=== PATIENT | female | born 1985 | race Caucasian/White ===

== ENCOUNTER 2022-01-27 17:37 | Inpatient (IN) | payer MEDICAID ==
[~2022-01-27] VITALS: Ht 170.2 cm; Wt 79.9 kg
--- NOTE | 2022-01-27 17:38 | NUR ---
MK, PT IS HOMELESS WAS FOUND IN VACANT HOME, DEHYDRATED, APPEARS TO BE ON DRUGS PT NOT WILLING TO PROVIDE NAME NOR BIRTHDAY, PRETENDING TO BE ASLEEP
--- NOTE | 2022-01-27 17:40 | NUR ---
THE PATIENT IS PLACED ON OXYGEN AT 5L/MIN VIA SIMPLE MASK AND OXYGEN SATURATION LEVEL IMPORVED TO 95%. WILL CONTINUE TO MONITOR THE PATIENT.
[2022-01-27] MEDS ORDERED: NALOXONE PREFILLED SYRINGE 2 MG/2 ML SYRINGE ONE (17:48)
[2022-01-27] MEDS ORDERED: NALOXONE HCL 0.4 MG/ML AMPUL IV ONE (18:00)
[2022-01-27] MEDS ORDERED: IV LR 1000 ML 1,000 ML IV ONE (18:00)
[2022-01-27] MEDS ORDERED: IV LR 1000 ML 1,000 ML BAG IV ONE (18:00)
[2022-01-27] MEDS ORDERED: DEXTROSE 50%-WATER 50 ML DISP.SYRIN ONE ×2 (18:11→19:09)
[2022-01-27] MEDS ORDERED: CEFTRIAXONE 1GM BAG (ER ONLY) 1 GM/50 ML PIGGYBACK IV ONE (19:00)
[2022-01-27] MEDS ORDERED: Thiamine 100 MG in IV D5W 50 ML IV SCH (19:00)
[2022-01-27] MEDS ORDERED: DEXTROSE 50%-WATER 50 ML DISP.SYRIN IVP ONE ×2 (19:00→19:30)
[2022-01-27] MEDS ORDERED: CEFTRIAXONE 1GM BAG (ER ONLY) 50 ML IV ONE (19:09)
[2022-01-27] MEDS ORDERED: Thiamine 100 MG/ML VIAL ONE (19:09)
--- NOTE | 2022-01-27 19:12 | NUR ---
RT pt leo. glenny to myesha per dr vaughn Addendum: 01/27/22 at 1929 by MADY BRISENO chico murrieta to [facility]
--- NOTE | 2022-01-27 19:20 | NUR ---
BLOOD SUGAR IS 68. DR BRENNER MADE AWARE.
[2022-01-27 19:27] LABS: ALCOHOL, BLOOD < 3 mg/dL (0-0)
[2022-01-27 19:34] LABS: BILIRUBIN,URINE NEGATIVE (NEGATIVE); COLOR,URINE YELLOW (YELLOW); LEUKOCYTE ESTERASE ,URINE SMALL (NEGATIVE); NITRITE, URINE NEGATIVE (NEGATIVE); PH,URINE 6.5 (5.0-8.0); PROTEIN,URINE 30 mg/dl (NEGATIVE); UGLUCOSE NEGATIVE (NEGATIVE); UROBILINOGEN,URINE 0.2 EU/dL (0.2)
[2022-01-27 19:44] LABS: ACETAMINOPHEN < 2 ug/ml (10-30)
[2022-01-27 19:45] LABS: BACTERIA,URINE 2+ /HPF (None Seen); RBC,URINE 0-2 /HPF (0-2); SQUAMOUS EPITHELIAL CELL,UR Few /HPF (None Seen); TRICHOMONAS,URINE Moderate /HPF (None Seen); WBC,URINE 51-80 /HPF (0-3)
--- NOTE | 2022-01-27 19:45 | NUR ---
CRITICAL: 3.6 LACTIC ACID, MADE AWARE
--- NOTE | 2022-01-27 19:46 | NUR ---
CRITICAL: WESLEY Law MD MADE AWARE
--- NOTE | 2022-01-27 20:02 | NUR ---
PROCALCITONIN 4.51 AWARE
--- NOTE | 2022-01-27 20:03 | NUR ---
BLOOD GLUCOSE 127
[2022-01-27 20:06] LABS: CALCIUM, SERUM 7.8 mg/dL (8.5-10.1); CARBON DIOXIDE 23 mmol/L (21-32); CHLORIDE 108 mmol/L (98-107); CREATININE 2.4 mg/dL (0.6-1.3); GLUCOSE 139 mg/dL (74-106); POTASSIUM 4.2 mmol/L (3.5-5.1); SODIUM SERUM 142 mmol/L (136-145); UREA NITROGEN, BLOOD 17 mg/dL (7-18)
[2022-01-27 20:16] LABS: ALANINE AMINOTRANSFERASE 79 U/L (12-78); ALBUMIN 2.9 g/dL (3.4-5.0); ALKALINE PHOSPHATASE 90 U/L (46-116); ASPARTATE AMINOTRANSFERASE 109 U/L (15-37); BILIRUBIN,DIRECT 0.1 mg/dL (0.0-0.2); BILIRUBIN,TOTAL 0.1 mg/dL (0.2-1.0); TOTAL PROTEIN, SERUM 6.1 g/dL (6.4-8.2)
[2022-01-27 20:34] LABS: BASOPHILS % (AUTO) 0.1 % (0.0-2.0); EOSINOPHILS % (AUTO) 0.1 % (0.0-6.0); HEMATOCRIT 39 % (33-45); HEMOGLOBIN 12.7 g/dL (11.5-14.8); LYMPHOCYTES # (AUTO) 1.5 K/uL (0.8-4.8); LYMPHOCYTES % (AUTO) 5.1 % (20.0-44.0); MEAN CORPUSCULAR HGB CONC 32 g/dl (31.0-36.0); MEAN CORPUSCULAR VOLUME 91 fL (82-100); MONOCYTES # (AUTO) 1.4 K/uL (0.1-1.30); NEUTROPHILS # (AUTO) 26.2 K/uL (1.8-8.9); NEUTROPHILS % (AUTO) 89.7 % (43.0-81.0); PLATELET COUNT (AUTO) 379 K/uL (150-450); RED BLOOD CELL COUNT(AUTO) 4.35 MIL/uL (4.0-5.2); WHITE BLOOD COUNT (AUTO) 29.2 K/uL (4.3-11.0)
--- NOTE | 2022-01-27 20:43 | NUR ---
COVID SWAB DONE AND SENT TO LAB
[2022-01-27] MEDS ORDERED: VANCOMYCIN HCL 1.25 GM in IV D5W 260 ML IV ONE (21:00)
[2022-01-27] MEDS ORDERED: NOREPINEPHRINE 8 MG in IV NS 0.9% 250 ML IV PRN (22:00)
[2022-01-27] MEDS ORDERED: IV NS 0.9% 1,000 ML IV PRN (22:00)
--- NOTE | 2022-01-27 22:11 | NUR ---
room 256
--- NOTE | 2022-01-27 22:28 | NUR ---
GAVE REPORT TO DEA PRINCE FOR JENN
[2022-01-27] MEDS ORDERED: PIPERACILLIN /TAZOBACTAM 3.375 G VIAL IV ONE (23:21)
[2022-01-27] MEDS: IV D5/ 0.9% NACL 1,000 ML IV PRN (23:24)
[2022-01-27] MEDS: PIPERACILLIN /TAZOBACTAM 3.375 G in IV D5W 50 ML IV SCH (23:24)
[2022-01-28] VITALS (24 sets, daily range): BP systolic 86–142; BP diastolic 52–82
[2022-01-28] MEDS ORDERED: PIPERACILLIN /TAZOBACTAM 3.375 G in IV D5W 50 ML IV SCH ×2
--- NOTE | 2022-01-28 01:00 | NUR ---
PUBLIC POLICY MANAGER. RECEIVED THE PT FROM ER [facility]IA [facility]. SEPSIS, HYPOTENSION. PT IS VERY LETHARGIC. DOES NOT FOLLOW COMMANDS. HOB ELEVATED. SLEEPING ALL THE TIME. OXYGEN 2L N/C. SAT 98%, NO ACUTE DISTRESS NOTED. DELICATESSEN DEPARTMENT MANAGER SHOWING NSR. WILL CONTINUE TO MONITOR
--- NOTE | 2022-01-28 01:12 | NUR ---
PT REFUSED ABG RN AWARE.
[2022-01-28 04:08] LABS: BASOPHILS % (AUTO) 0.2 % (0.0-2.0); HEMATOCRIT 38 % (33-45); HEMOGLOBIN 12.2 g/dL (11.5-14.8); LYMPHOCYTES # (AUTO) 3.4 K/uL (0.8-4.8); LYMPHOCYTES % (AUTO) 15.1 % (20.0-44.0); MEAN CORPUSCULAR HGB CONC 33 g/dl (31.0-36.0); MEAN CORPUSCULAR VOLUME 91 fL (82-100); MONOCYTES # (AUTO) 1.6 K/uL (0.1-1.30); MONOCYTES % (AUTO) 7.1 % (2.0-12.0); NEUTROPHILS # (AUTO) 17.6 K/uL (1.8-8.9); NEUTROPHILS % (AUTO) 77.6 % (43.0-81.0); PLATELET COUNT (AUTO) 334 K/uL (150-450); RED BLOOD CELL COUNT(AUTO) 4.13 MIL/uL (4.0-5.2); WHITE BLOOD COUNT (AUTO) 22.7 K/uL (4.3-11.0)
[2022-01-28] MEDS: PIPERACILLIN /TAZOBACTAM 3.375 G in IV D5W 50 ML IV SCH (06:00)
[2022-01-28] MEDS ORDERED: PIPERACILLIN /TAZOBACTAM 3.375 G VIAL IV ONE (06:27)
[2022-01-28 08:28] LABS: ALBUMIN 2.9 g/dL (3.4-5.0); BILIRUBIN,TOTAL 0.3 mg/dL (0.2-1.0); CALCIUM, SERUM 7.4 mg/dL (8.5-10.1); TOTAL PROTEIN, SERUM 5.9 g/dL (6.4-8.2)
[2022-01-28] MEDS ORDERED: Thiamine 100 MG in IV D5W 50 ML IV SCH (09:00)
--- NOTE | 2022-01-28 09:40 | NUR ---
ALL PREVIOUS MEDS BEFORE 0700 GIVEN DURING DOWNTIME BY TREE DRILLER.
--- NOTE | 2022-01-28 10:01 | NUR ---
TROPONIN LEVEL FROM 218 TO 773 OF 1000 01/28/22.
[2022-01-28] MEDS: IV D5/ 0.9% NACL 1,000 ML IV PRN ×2 (11:20→21:44)
--- NOTE | 2022-01-28 11:40 | NUR ---
SS consult requested for Homelessness. SW will follow up at a later time.
[2022-01-28] MEDS: ACETAMINOPHEN 325 MG TABLET PO PRN ×3 (13:14→22:25)
[2022-01-28] MEDS ORDERED: PIPERACILLIN /TAZOBACTAM 3.375 G in IV D5W 100 ML IV SCH (14:00)
--- NOTE | 2022-01-28 19:24 | NUR ---
RN CLOSING NOTES pt fully awake, off npo status. A/O X4, ON RA SATING AT 98%. IV ACCESS NOTED AT LEFT EJ. D5 NS RUNNING. ALL SAFETY MEASURES IN PLACE, FALL PRECAUTIONS IN PLACE, ENDORSED CARE OF PT TO CONTRACTS OFFICER RN.
--- NOTE | 2022-01-28 19:30 | NUR ---
RN OPENING NOTES PATIENT LAYING ON THE BED ASLEEP BUT AWAKES TO VOICE A&OX4. ALL VSS. SR, VOIDING VIA BEDPAN, DIET REGULAR. IV EJ 18G RUNNING D5WNS @100MLS/HR. ALL SAFETY FALL PRECAUTIONS IN PLACE BED LOCK ON, BED IN LOWEST POSITION, BED ALARM ON, SIDE RAILS UP, CALL LIGHT WITHIN REACH. WILL CONTINUE TO MONITOR.
[2022-01-28] MEDS ORDERED: METRONIDAZOLE 500 MG TABLET PO ONE (21:00)
[2022-01-28] MEDS ORDERED: VANCOMYCIN 1 GM in IV D5W 250ml IV SCH (21:00)
[2022-01-28] MEDS ORDERED: CEFTRIAXONE 2 G in IV D5W 100 ML IV SCH (21:00)
[2022-01-28] MEDS ORDERED: METRONIDAZOLE 500 MG TABLET PO SCH (21:00)
--- NOTE | 2022-01-28 21:02 | NUR ---
RN NOTE PATIENT REFUSED THE BLOOD DRAW FROM THE INVESTMENT ASSOCIATE.
[2022-01-29] VITALS (17 sets, daily range): BP systolic 114–156; BP diastolic 59–80
--- NOTE | 2022-01-29 02:00 | NUR ---
RN NOTE PATIENT RIPPED HER EJ IV ACCESS OUT. PATIENT RIPPED OFF ALL OF HER MONITORING EQUIPMENT AND REFUSED TO PUT IT BACK ON.
--- NOTE | 2022-01-29 02:30 | NUR ---
RN NOTE PATIENT LET ME INSERT A NEW IV ON HER RIGHT FOREARM 22G.
[2022-01-29] MEDS: LORAZEPAM INJ 2 MG/ML VIAL IV PRN ×3 (02:49→16:01)
--- NOTE | 2022-01-29 03:41 | NUR ---
RN NOTE PATIENT REFUSED LAB BLOOD DRAW.
--- NOTE | 2022-01-29 07:03 | NUR ---
RN CLOSING NOTE, AL CARE ENDORSED TO DAY SHIFT NURSE.
[2022-01-29] MEDS: IV D5/ 0.9% NACL 1,000 ML IV PRN ×2 (07:20→16:13)
[2022-01-29] MEDS ORDERED: THIAMINE HCL 100 MG TABLET PO SCH (09:00)
[2022-01-29 09:53] LABS: CALCIUM, SERUM 7.8 mg/dL (8.5-10.1); CREATININE 1.4 mg/dL (0.6-1.3); POTASSIUM 3.9 mmol/L (3.5-5.1)
--- NOTE | 2022-01-29 12:10 | NUR ---
SS consult requested for homelessness and addiction resources. Pt. is a 37-year-old female who was admitted to [facility] on 01/27/2022 due to septic shock. Per EMR, pt. is homeless and was found in vacant home, dehydrated and appeared to be on drugs. Upon SS consult, pt. is alert and oriented x4. Pt. presented with a depressed mood and congruent affect. Pt. appeared unkempt and tired. Pt. did not provide appropriate eye contact. Pt. was cooperative throughout the interview. supply chain planner explored pt.s current living situation. Pt. stated she is currently homeless. supply chain planner provided homeless resources and pt. accepted. supply chain planner explored pt.s substance use history. Pt. stated she overdosed on Fentanyl. supply chain planner offered pt. addiction resources and pt. accepted. supply chain planner reviewed resources with the pt. Pt. was agreeable to possible placement at [facility] ([phone]) or a sober living home. supply chain planner explored pt.s psychiatric history. Pt. stated she is diagnosed with bipolar disorder and PTSD. Pt. denied suicidal and homicidal ideation. Pt. denied visual and auditory hallucinations. Plan: Upon discharge, pt. stated she wanted to be referred to [facility] . Photography Professor faxed pt.s clinicals to [facility] ( ) for possible placement. Pt. was agreeable to a sober living facility or snf placement. supply chain planner will remain available as needed. supply chain planner provided the pt. with the following resources: Year-round shelters: [place] [facility] [address] [place] [address] ; [facility] [address] [place] [address]; [place] [facility] [address] [facility]. [facility] [address] Hygiene: [facility]: [address] [place] ; [facility] [address] [facility] ; [facility] [place] [address] . Food Resources: [facility] at [facility]- [address] [place]; Meet Each Need with [facility] ([facility]) [address] [place]; [facility] [address] [facility]; [facility] [address] [place]. Mental Health resources provided: [facility] [address] [place] [address] ; [facility] [address] [facility] [address], [place], [place] [id number] ; [facility] [address], [place] [id number] ; [facility] [address] [place], [place] [address] Healthcare Clinics: [facility] [address] [place]. [place] ; [facility] [address] [facility] [address] [place] [address]; [facility] [address] [facility] [place]. [place] [phone] Substance Abuse resources provided included: [facility] Substance Abuse Self-Helpline ([facility]) ; [facility] [address] [facility]. [place] [address] ; [facility] [address] [facility] [address] ; [facility] [address] [facility] [phone] ; [facility] [address] [facility] [address] ; [facility] [address] [facility] [address] ; [facility] [place] [address] [facility] [phone] ; [facility] Substance Abuse Helpline([facility] ; [facility] ; [facility] [place]; [facility] [place]; [facility] [place]; [facility] [address]; [facility] [place]; [place]; [facility]; [facility]. Ayad Colon; Alcoholics Anonymous -[facility]; [facility] ; Marijuana Anonymous [facility]; Narcotics Anonymous www.na.org
[2022-01-29] MEDS: ACETAMINOPHEN 325 MG TABLET PO PRN ×2 (12:23→16:01)
--- NOTE | 2022-01-29 14:05 | NUR ---
REPORT GIVEN TO CHIQUITA MALIN IN [facility], PT WILL GO INTO ROOM 119 BED 1. PT STABLE AND READY FOR TRANSFER.
[2022-01-29] MEDS ORDERED: VANCOMYCIN 1 GM in IV D5W 250ml IV SCH (15:00)
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
--- NOTE | 2022-01-29 15:20 | NUR ---
PATIENT WAS TRANSFERRED FROM THE ICU , ALERT , ORIENTED TIMES 4 , AGITATED AND REQUESTING , ANTIANXIETY MEDICATION , ATIVAN 1 MG WAS GIVEN IV , PATIENT C/O NAUSEA , ONDANSETRON PER MD ORDER , TYLENOL FOR PAIN .PATIENT KEEP ASKING FOR STRONGER PAIN MEDICATION , REPORT WAS SENT TO THE DR ROBLES. PATIENT IS INDEPENDENTLY AMBULATING.HAS IV ACSESS OF THE RFA 22 G , ALSO PATIENT ASKED FOR THE [place] SANDR[place] , CALLED KITCHEN ORDERED .BED IS AT LOWEST POSITION , CALL LIGHT WITHIN REACH
[2022-01-29] MEDS ORDERED: ONDANSETRON HCL/PF 4 MG/2 ML VIAL IV PRN (16:00)
--- NOTE | 2022-01-29 17:20 | NUR ---
ms rn note patient left against medical advice patient not suicidal denies suicidal or homicidal ideation, hl removed no bleeding noted, paged to dr zuleta left a message with [employer] service
--- NOTE | 2022-01-29 17:21 | NUR ---
PATIENT PULLED OUT THE PERIPHERAL IV LINE , BECAME VERY AGRESSIVE AND AGGITATED , SCREEMING THAT NO ONE CARE TO GIVE HER STRONG PAIN KILLER AND LEFT AGAINST THE MEDICAL ADVICE . DR ROBLES NOTIFIED.
== END 2022-01-29 17:39 | disposition left against medical advice (07) | DRG 812 ==
LOC: EDBD 17:42 → ER 17:42 → ICU 22:14 → MEDSG1 01-29 14:39
PROVIDERS: ADMIT Nurse Practitioner Acute Care; ATTEND Internal Medicine
DX: T40.411A Poisoning by fentanyl or fentanyl analogs, accidental (unintentional), initial encounter (principal); N17.0 Acute kidney failure with tubular necrosis; J96.01 Acute respiratory failure with hypoxia; R65.21 Severe sepsis with septic shock; E44.0 Moderate protein-calorie malnutrition; A41.9 Sepsis, unspecified organism; G92.8 Other toxic encephalopathy; G92.9 Unspecified toxic encephalopathy; Y92.89 Other specified places as the place of occurrence of the external cause; Z20.822 Contact with and (suspected) exposure to COVID-19; N39.0 Urinary tract infection, site not specified; B96.89 Other specified bacterial agents as the cause of diseases classified elsewhere; I21.A1 Myocardial infarction type 2; E87.2 Acidosis; E83.51 Hypocalcemia; E88.09 Other disorders of plasma-protein metabolism, not elsewhere classified; E16.2 Hypoglycemia, unspecified; A59.9 Trichomoniasis, unspecified; K59.00 Constipation, unspecified; Z59.00 Homelessness unspecified; F19.10 Other psychoactive substance abuse, uncomplicated
CPT/HCPCS: 36415; 70450-TC; 71045-TC; 76770-TC; 80048-TC; 80053-TC; 80076-TC; 81001; 82533; 82550-TC; 82962-TC; 83605-TC; 83690-TC; 84484-TC; 84703-TC; 85025-TC; 85730-TC; 86592; 86593; 87040-TC; 87081-TC; 87086-TC; 87806; 94799-TC; C9803; G0378; G0480; J0696; J2060; J2310; J2405; J2543; J3370; J3411; J3490; J7042; J7050; J7060; J7120